=== PATIENT | male | born 1965 | race Caucasian/White ===

== ENCOUNTER 2018-02-14 13:20 | Emergency (ER) | payer SELFPAY ==
[2018-02-14] MEDS ORDERED: Ketorolac Tromethamine 30 MG/ML VIAL ONE (13:55)
--- NOTE | 2018-02-14 14:03 | CT ---
CT CERVICAL SPINE WITHOUT CONTRAST: HISTORY: Trauma. Fall from ladder. COMPARISON: None. FINDINGS: The odontoid process is intact. The occipital condyles are intact. There is no acute fracture or ma lalignment of the cervical spine. The paraspinal soft tissues are unremarkable. No hematoma. Small volume fluid in the right mastoids. IMPRESSION: 1. No acute fracture of the cervical spine. 2. Small volume fluid right mastoids. POS: [facility]
--- NOTE | 2018-02-14 14:04 | CT ---
CT THORACIC SPINE WITHOUT CONTRAST: HISTORY: Trauma. Fall from ladder. COMPARISON: None. FINDINGS: The thoracic spine is intact. The transverse spine transverse processes are intact. No displaced po sterior rib fracture. Punctate calcification in the left interpolar renal collecting system. Calcif ied granuloma of the spleen. No paraspinal hematoma. Mild paraseptal emphysema. No basilar pneumothorax. IMPRESSION: No acute fracture of the thoracic spine. POS: [facility]
== END 2018-02-14 14:23 | disposition home or self-care (01) ==
LOC: ERS 13:20
DX: S09.90XA Unspecified injury of head, initial encounter (principal); S29.012A Strain of muscle and tendon of back wall of thorax, initial encounter; S16.1XXA Strain of muscle, fascia and tendon at neck level, initial encounter; I10 Essential (primary) hypertension; F31.9 Bipolar disorder, unspecified; F25.9 Schizoaffective disorder, unspecified; F17.210 Nicotine dependence, cigarettes, uncomplicated; W11.XXXA Fall on and from ladder, initial encounter
CPT/HCPCS: 72125; 72128; 96374; J1885

== ENCOUNTER 2024-05-12 12:17 | Emergency (ER) | payer OTHER ==
[2024-05-12 13:16] LABS: #Basophils 0.08 10x3/uL (0.0-0.2); %Basophils 0.8 % (0.0-1.0); %Eosinophils 6.3 % (0.0-10.0); %Lymphocytes 17.1 % (21.0-51.0); %Monocytes 6.3 % (0.0-10.0); %Neutrophils 68.6 % (42.0-75.0); Hemoglobin 13.9 g/dL (14.0-18.0); Mean Corpuscular HGB CONC 34.8 g/dL (32.0-36.0); Mean Corpuscular Hemoglobin 29.1 pg (27.0-31.0); Mean Corpuscular Volume 83.9 fL (78.0-98.0); Mean Platelet Volume 9.7 fL (7.4-10.4); Platelet Count 301 10x3/uL (130-400); RBC Distribution Width 13.3 % (11.5-14.5); Red Blood Cell (RBC) Count 4.77 mill/uL (4.70-6.10)
[2024-05-12 13:29] LABS: Albumin 3.3 g/dL (3.1-4.5); Anion Gap 17 mmol/L (10-20); BUN (Urea Nitrogen) 14 mg/dL (8.4-25.7); Bilirubin, Total 0.3 mg/dL (0.3-1.2); Calc. Creatinine Clearance 0 mL/min (70-130); Calcium 9.3 mg/dL (7.8-10.44); Carbon Dioxide 19 mmol/L (22-29); Chloride 107 mmol/L (98-107); Estimated GFR 80; Glucose 125 mg/dL (70-105); Potassium 2.8 mmol/L (3.5-5.1); Protein, Total 7.5 g/dL (6.0-8.3); Sodium 140 mmol/L (136-145)
[2024-05-12 13:30] LABS: ALT (SGPT) 28 U/L (Less than 45); AST (SGOT) 38 U/L (11-34); Alkaline Phosphatase 69 U/L (40-110); Globulin 4.2 g/dL (2.4-3.5)
[2024-05-12 13:35] LABS: Troponin I Less than 0.010 ng/mL (< 0.028)
[2024-05-12] MEDS ORDERED: Acetaminophen 500 MG TAB ONE (13:43)
[2024-05-12] MEDS ORDERED: Potassium Chloride 20 MEQ TAB ONE (13:43)
[2024-05-12] MEDS ORDERED: Ketorolac Tromethamine 30 MG (1 mL) VIAL ONE (13:43)
== END 2024-05-12 15:08 | disposition home or self-care (01) ==
LOC: ERS 12:17
DX: M54.12 Radiculopathy, cervical region (principal); F15.10 Other stimulant abuse, uncomplicated; I25.2 Old myocardial infarction; F17.210 Nicotine dependence, cigarettes, uncomplicated
CPT/HCPCS: 36415; 70450; 71045; 80053; 84484; 85025; 93005; 94760; 96374; J1885

== ENCOUNTER 2024-11-06 03:49 | Inpatient (IN) | payer OTHER ==
[2024-11-06 04:24] LABS: #Basophils 0.08 10x3/uL (0.0-0.2); #Eosinophils 0.04 10x3/uL (0.0-0.7); #Monocytes 0.67 10x3/uL (0.11-0.59); #Neutrophils 11.08 10x3/uL (1.40-6.50); %Basophils 0.6 % (0.0-1.0); %Eosinophils 0.3 % (0.0-10.0); %Lymphocytes 9.7 % (21.0-51.0); %Monocytes 5.0 % (0.0-10.0); %Neutrophils 83.3 % (42.0-75.0); Hematocrit 41.2 % (42.0-52.0); Hemoglobin 13.9 g/dL (14.0-18.0); Mean Corpuscular Hemoglobin 28.7 pg (27.0-31.0); Mean Corpuscular Volume 85.1 fL (78.0-98.0); Platelet Count 280 10x3/uL (130-400); Red Blood Cell (RBC) Count 4.84 mill/uL (4.70-6.10); White Blood Cell (WBC) Count 13.31 10x3/uL (4.8-10.8)
[2024-11-06 05:02] LABS: ALT (SGPT) 19 U/L (Less than 45); AST (SGOT) 22 U/L (11-34); Albumin 4.0 g/dL (3.1-4.5); Alkaline Phosphatase 57 U/L (40-110); Anion Gap 18 mmol/L (10-20); BUN (Urea Nitrogen) 30 mg/dL (8.4-25.7); Bilirubin, Total 0.3 mg/dL (0.3-1.2); Calc. Creatinine Clearance 0 mL/min (70-130); Calcium 8.7 mg/dL (7.8-10.44); Carbon Dioxide 18 mmol/L (22-29); Chloride 105 mmol/L (98-107); Globulin 3.9 g/dL (2.4-3.5); Glucose 142 mg/dL (70-105); Potassium 3.2 mmol/L (3.5-5.1); Sodium 138 mmol/L (136-145)
[2024-11-06 05:07] LABS: Troponin I 0.039 ng/mL (< 0.028)
[2024-11-06] MEDS ORDERED: Naproxen 500 MG TAB ONE (05:36)
[2024-11-06] MEDS ORDERED: Calcium Carbonate 500 MG ChewTAB PO PRN (06:25)
[2024-11-06] MEDS ORDERED: Ondansetron PF 4 MG/2 ML Vial IVP PRN (06:25)
[2024-11-06 06:26] LABS: Troponin I 0.259 ng/mL (< 0.028)
[2024-11-06] MEDS ORDERED: Electrolyte Replacement Protocol 1 EACH FS SCH (06:30)
[2024-11-06 10:11] LABS: Magnesium 2.0 mg/dL (1.6-2.6)
[2024-11-06 10:21] VITALS: BMI 30.4
[2024-11-06 10:40] LABS: Troponin I 8.672 ng/mL (< 0.028)
[2024-11-06] MEDS ORDERED: Iopamidol 370 76% 100 ML VIAL ONE (11:15)
[2024-11-06 11:24] LABS: Cocaine Metabolite Screen Negative (Negative); THC/Cannabinoid Screen Negative (Negative); Tricyclic Screen Negative (Negative)
[2024-11-06] MEDS: Acetaminophen 325 MG TAB PO PRN (11:36)
[2024-11-06] MEDS: Magnesium 2 GM/50 ML(in water) 2 GM in Premix 1 BAG IVPB SCH (11:36)
[2024-11-06] MEDS ORDERED: Enoxaparin 80 MG (0.8 mL) SYRINGE SC SCH (11:37)
[2024-11-06] MEDS ORDERED: Enoxaparin 100 MG (1 mL) SYRINGE SC SCH ×2 (11:37→21:00)
[2024-11-06] MEDS ORDERED: Communication Order-Pharmacy FS ONE (11:37)
[2024-11-06 11:48] VITALS: BP 155/85; TEMP 98.4
[2024-11-07] MEDS ORDERED: Pantoprazole 40 MG DR.TAB PO SCH (09:00)
[2024-11-07] MEDS ORDERED: Aspirin 81 mg Enteric Coated Tablet PO SCH (09:00)
== END 2024-11-06 14:35 | disposition left against medical advice (07) | DRG 315 ==
LOC: ERS 03:49 → 2NO 06:05
PROVIDERS: ADMIT Student in an Organized Health Care Education/Training Program; ATTEND Student in an Organized Health Care Education/Training Program
DX: I31.9 Disease of pericardium, unspecified (principal); E87.20 Acidosis, unspecified; I51.81 Takotsubo syndrome; N17.9 Acute kidney failure, unspecified; N18.9 Chronic kidney disease, unspecified; K21.9 Gastro-esophageal reflux disease without esophagitis; E03.9 Hypothyroidism, unspecified; Z98.890 Other specified postprocedural states; Z86.73 Personal history of transient ischemic attack (TIA), and cerebral infarction without residual deficits; Z91.010 Allergy to peanuts; F17.210 Nicotine dependence, cigarettes, uncomplicated; E87.6 Hypokalemia
CPT/HCPCS: 36415; 71045; 71275; 80053; 80306; 83735; 84484; 85025; 86141; 86850; 86900; 86901; 93005; 93010; 93306; 96374; J2270; J3010; J3475; Q9967